=== PATIENT | male | born 1970 | race African-American/Black ===

== ENCOUNTER 2019-02-26 01:36 | Emergency (ER) | payer SELFPAY ==
[2019-02-26] MEDS ORDERED: NORMAL SALINE 1000 ML 1,000 ML IV ONE (01:58)
[2019-02-26 02:04] LABS: ABSOLUTE EOSINOPHILS # (AUTO) 0.1 10^3/uL (0.0-0.6); ABSOLUTE LYMPHOCYTES (AUTO) 2.3 10^3/uL (0.5-4.7); ABSOLUTE MONOCYTES (AUTO) 0.8 10^3/uL (0.1-1.4); ABSOLUTE NEUT (AUTO) 10.7 10^3/uL (1.7-8.2); BASOPHILS % (AUTO) 0.3 % (0-2); EOSINOPHILS % (AUTO) 0.4 % (0-6); HEMATOCRIT 38.6 % (37.9-51.0); HEMOGLOBIN 12.7 g/dL (13.5-17.0); LYMPHOCYTES % (AUTO) 16.7 % (13-45); MEAN CORPUSCULAR HEMOGLOBIN 29.3 pg (27.0-33.4); MEAN CORPUSCULAR VOLUME 89 fl (80-97); MONOCYTES % (AUTO) 5.6 % (3-13); PLATELET COUNT 289 10^3/uL (150-450); RED BLOOD COUNT 4.35 10^6/uL (4.35-5.55); RED CELL DISTRIBUTION WIDTH 13.8 % (11.5-14.0); TOTAL CELLS COUNTED % (AUTO) 100 %; WHITE BLOOD COUNT 13.9 10^3/uL (4.0-10.5)
--- NOTE | 2019-02-26 02:05 | ER Document Report ---
ED General - General Chief Complaint: Rectal Bleeding Stated Complaint: RECTAL BLEEDING Time Seen by Provider: 02/26/19 01:52 Notes: Patient is a pleasant 49-year-old male presents with complaint of heavy bleeding from the rectal region. Just started tonight. He is never had anything like this before. He denies any pain associated with it. No fevers. No vomiting. He does drink alcohol on a daily basis. Smokes cigarettes. No drugs. He does not take any medications. He denies any medical allergies. He denies history of previous colonoscopy or endoscopy. No other complaints at this time. He says that he will just have pure blood that comes from his rectum. Is not necessarily associated with stool. TRAVEL OUTSIDE OF THE [place] IN LAST 30 DAYS: No - Related Data Allergies/Adverse Reactions: No Known Allergies Allergy (Verified 02/26/19 01:39) Past Medical History - Social History Smoking Status: Current Every Day Smoker Frequency of alcohol use: Heavy Drug Abuse: None Family History: Reviewed & Not Pertinent Pulmonary Medical History: Denies: Hx Tuberculosis GI Medical History: Reports: Hx Gastroesophageal Reflux Disease - Immunizations Hx Diphtheria, Pertussis, Tetanus Vaccination: No Review of Systems - Review of Systems Notes: My Normal Review Basic REVIEW OF SYSTEMS: CONSTITUTIONAL : Denies fever, chills, or sweats. Denies recent illness. CARDIOVASCULAR: Denies chest pain. RESPIRATORY: Denies cough, cold, or chest congestion. Denies shortness of breath, difficulty breathing, or wheezing. GASTROINTESTINAL: Denies abdominal pain. Denies nausea, vomiting, or diarrhea. Denies constipation. Rectal bleeding. MUSCULOSKELETAL: Denies neck or back pain or joint pain or swelling. SKIN: Denies rash or skin lesions. HEMATOLOGIC : Denies easy bruising or bleeding. NEUROLOGICAL: Denies altered mental status or loss of consciousness. ALL OTHER SYSTEMS REVIEWED AND NEGATIVE. Physical Exam - Vital signs Vitals: Resp BP Pulse Ox 21 H 114/84 100 02/26/19 01:47 02/26/19 01:47 02/26/19 01:47 - Notes Notes: General Appearance: Well nourished, alert, cooperative, no acute distress, no obvious discomfort. Vitals: reviewed, See vital signs table. Eyes: PERRL, EOMI, Conjuctiva clear Mouth: No decreasd moisture Lungs: No wheezing, No rales, No rhonci, No accessory muscle use, good air exchange bilaterally. Heart: Normal rate, Regular rythm, No murmur, no rub Abdomen: Normal BS, soft, No rigidity, No abdominal tenderness, No guarding, no rebound, no abdominal masses, no organomegaly Rectal exam: Some dried blood around outside the rectum. No hemorrhoids. No fissures. Extremities: good pulses in all extremities, no swelling or tenderness in the extremities, no edema. Skin: warm, dry, appropriate color, no rash Neuro: speech clear, oriented x 3, normal affect, responds appropriately to ques tions. Course - Re-evaluation Re-evalutation: 02/26/19 04:25 Patient has not had any further rectal bleeding since arriving to the ER. Is been here for a few hours. Vital signs remained normal. CT scan shows diverticulosis without obvious active large hemorrhage. I talked the patient and his fiance at length. I informed him that he could have a diverticular bleed that was causing his symptoms. I told him this is most likely thing. I informed him that is also possible he could have a polyp or even colon cancer that could be leading to his bleeding. I recommend staying in the hospital for admission for 24 observation to make sure there is not further bleeding and help arrange for colonoscopy. I informed her it is extremely important as a colonoscopy to help rule out polyp or cancer. Patient shows understanding of this but says that he does not want to stay and prefers to go home. Patient's fili said that she will bring him back to ER immediately if he has any recurrent bleeding. Patient is awake alert and oriented. Answers all questions appropriately. He demonstrates capacity to make his own decisions and therefore cannot hold him against as well. I informed him that we want what is best form and strongly encouraged him return to ER anytime as we are happy to take care of him and help him. I will refer him to the GI specialist for reevaluation and for colonoscopy. Patient agrees with plan and will be discharged as he [facility]. Patient'ana penn had some concerns that he was a bit confused at first. Says when he first arrived he kept asking questions about things that occurred earlier. Patient seems to have some lapse in memory of when all his spleen was going on. Currently he does not show any signs of confusion as he is answering all questions appropriately and acting appropriately without any signs of confusion. Dictation of this chart was performed using voice recognition software; therefore, there may be some unintended grammatical errors. - Vital Signs Vital signs: Temp Pulse Resp BP Pulse Ox 98 F 16 114/84 100 02/26/19 02:15 02/26/19 03:00 02/26/19 01:47 02/26/19 02:30 - Laboratory Result Diagrams: 02/26/19 01:48 02/26/19 01:48 Laboratory results interpreted by me: 02/26/19 02/26/19 01:48 01:48 WBC 13.9 H Hgb 12.7 L Absolute Neutrophils 10.7 H Creatinine 1.84 H Est GFR ( Amer) 47 L Est GFR (Non-Af Amer) 39 L Glucose 114 H Discharge - Discharge Clinical Impression: Rectal bleeding, Diverticulosis Condition: Stable Disposition: HOME, SELF-CARE Additional Instructions: Your CT scan shows that you have diverticulosis. This is out pouching's of the bowel wall that occur as you get older. Sometimes this can lead to bleeding. This is the most likely the cause of the bleeding that you had tonight. Other causes of similar bleeding could be a polyp in your colon or even cancer. It is therefore extremely important that you have a colonoscopy performed to evaluate to make sure that you do not have any of these concerning findings. We do recommend that you stay in the hospital so we can watch you for the next 24 hours to make sure you do not have any recurrent bleeding. There is no way to determine whether or not you will have a bad outcome within the next 24 hours and this is why we prefer you to stay. We respect your decision to leave and understand that you do have prior priorities. Even though you are leaving we are not upset or mad. We just want what is best for you and therefore we encourage you to come back anytime if you have any recurrence of your symptoms. Please call the GI physician, Dr. Fenton, to make a close follow-up appointment to have a colonoscopy performed. Please continue to slowly cut back on your alcohol intake until you are no longer drinking alcohol. Please again have a very low threshold to return to the ER if you have any recurrent bleeding, dizziness, lightheadedness, or feel unwell in any way. Referrals: ANTONINO FENTON MD [ACTIVE STAFF] - Follow up in 3-5 days (call office [place] morning to make a close follow up appointment)
[2019-02-26 02:11] LABS: INTERNATIONAL RATION (INR) 0.97; PROTHROMBIN TIME 13.4 SEC (11.4-15.4)
[2019-02-26 02:29] LABS: ALANINE AMINOTRANSFERASE 27 U/L (21-72); ALBUMIN 3.8 g/dL (3.5-5.0); ALKALINE PHOSPHATASE 57 U/L (38-126); ANION GAP 14 (5-19); ASPARTATE AMINO TRANSFERASE 22 U/L (17-59); BILIRUBIN,DIRECT 0.2 mg/dL (0.0-0.4); BILIRUBIN,TOTAL 0.2 mg/dL (0.2-1.3); BLOOD UREA NITROGEN 17 mg/dL (7-20); CALCIUM 9.3 mg/dL (8.4-10.2); CARBON DIOXIDE 24 mmol/L (22-30); CHLORIDE 101 mmol/L (98-107); GLUCOSE 114 mg/dL (75-110); POTASSIUM 3.8 mmol/L (3.6-5.0); SODIUM 139.3 mmol/L (137-145); TOTAL PROTEIN 6.5 g/dL (6.3-8.2)
--- NOTE | 2019-02-26 03:44 | RADIOLOGY REPORT (SQ) ---
EXAM DESCRIPTION: CT ABDOMEN PELVIS WITHOUT THEN WITH IV CONTRAST COMPLETED DATE/TME: 02/26/2019 00:00 CLINICAL HISTORY: 49 years, Male, lower GI bleed COMPARISON: None TECHNIQUE: [id number] Images stored on PACS. All CT scanners at this facility use dose modulation, iterative reconstruction, and/or weight based dosing when appropriate to reduce radiation dose to as low as reasonably achievable (ALARA). [facility]: Dose Right [facility]: CareDose [facility]: Dose Right [facility]: Teradose 4D [facility]: [employer] LIMITATIONS: None. FINDINGS: Lung bases are unremarkable. Osseous structures are grossly intact. Precontrast images show no discrete urinary tract calculus. The liver, spleen, adrenal glands, pancreas, kidneys are unremarkable. Focal fatty change of the anterior liver. The gallbladder is unremarkable. No gross evidence for bowel obstruction. Abundant stool in the colon. Sigmoid diverticulosis without CT evidence for diverticulitis. No free air or free fluid. Normal appendix IMPRESSION: Sigmoid diverticulosis without CT evidence for diverticulitis. Focal fatty change of the liver TECHNICAL DOCUMENTATION: Quality ID # [id number]: Final reports with documentation of one or more dose reduction techniques (e.g., Automated exposure control, adjustment of the mA and/or kV according to patient size, use of iterative reconstruction technique) copyright 2010 [employer]- All Rights Reserved
[2019-02-26 04:54] VITALS: BP 99/80
== END 2019-02-26 04:39 | disposition home or self-care (01) ==
LOC: ER 01:36
DX: K57.91 Diverticulosis of intestine, part unspecified, without perforation or abscess with bleeding (principal); K62.5 Hemorrhage of anus and rectum; F17.200 Nicotine dependence, unspecified, uncomplicated
CPT/HCPCS: 99284; 96360; 86900; 86901; 36415; 86850; 85025; 85610; 85730; 80053; 74178; J7030

== ENCOUNTER 2019-05-24 11:38 | Emergency (ER) | payer SELFPAY ==
--- NOTE | 2019-05-24 12:21 | ER Document Report ---
ED Medical Screen (RME) - General Chief Complaint: Abscess Stated Complaint: POSSIBLE SPIDER BITE Time Seen by Provider: 05/24/19 12:11 Notes: 49-year-old male presents to the emergency department with concern for a brown recluse bite approximately 1 week ago to the posterolateral aspect of the right forearm. He is sure that it is a brown recluse because after the fact he saw a 1 in the area where he got bit. Patient states that he has significant pain in the area with joint pain at the elbow. No clear evidence of central necrosis, patient denies fevers, denies general myalgias, denies nausea vomiting. EXAM: Area over the right posterior lateral forearm with swelling consistent with an abscess, area is indurated, could not palpate an area of fluctuance, central area that is scabbed over TRAVEL OUTSIDE OF THE [place] IN LAST 30 DAYS: No - Related Data Allergies/Adverse Reactions: No Known Allergies Allergy (Verified 05/24/19 11:40) Past Medical History Pulmonary Medical History: Denies: Hx Tuberculosis Renal/ Medical History: Denies: Hx Peritoneal Dialysis GI Medical History: Reports: Hx Gastroesophageal Reflux Disease - Immunizations Hx Diphtheria, Pertussis, Tetanus Vaccination: No Physical Exam - Vital signs Vitals: Temp Pulse Resp BP Pulse Ox 98.7 F 81 20 124/73 100 05/24/19 11:48 05/24/19 11:48 05/24/19 11:48 05/24/19 11:48 05/24/19 11:48 Course - Vital Signs Vital signs: Temp Pulse Resp BP Pulse Ox 98.7 F 81 20 124/73 100 05/24/19 11:48 05/24/19 11:48 05/24/19 11:48 05/24/19 11:48 05/24/19 11:48
[2019-05-24] MEDS ORDERED: LIDOCAINE 1% INJ-PF (10 MG/ML) 30 ML SDV INJ ONE (13:28)
--- NOTE | 2019-05-24 14:35 | ER Document Report ---
Entered by SHYLA OLMEDO SCRIBE 05/24/19 1336 Acting as scribe for:EVIN HELLER MD ED Skin Rash/Insect Bite/Abscs - General Chief Complaint: Abscess Stated Complaint: POSSIBLE SPIDER BITE Time Seen by Provider: 05/24/19 12:11 Mode of Arrival: Ambulatory Information source: Patient Notes: 49-year-old male who presents to the emergency department today with complaints of an abscess to his right arm. Patient states he has had this area on his arm for several days, stating that he has been squeezing on it and has gotten some purulent drainage from it. 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 TRAVEL OUTSIDE OF THE [place] IN LAST 30 DAYS: No - Related Data Allergies/Adverse Reactions: No Known Allergies Allergy (Verified 05/24/19 11:40) Past Medical History - General Information source: Patient - Social History Smoking Status: Current Every Day Smoker Cigarette use (# per day): Yes Chew tobacco use (# tins/day): No Frequency of alcohol use: Social Drug Abuse: None Lives with: Family Family History: Reviewed & Not Pertinent Patient has suicidal ideation: No Patient has homicidal ideation: No GI Medical History: Reports: Hx Gastroesophageal Reflux Disease - Immunizations Hx Diphtheria, Pertussis, Tetanus Vaccination: No Review of Systems - Review of Systems Constitutional: No symptoms reported EENT: No symptoms reported Cardiovascular: No symptoms reported Respiratory: No symptoms reported Gastrointestinal: No symptoms reported Genitourinary: No symptoms reported Male Genitourinary: No symptoms reported Musculoskeletal: No symptoms reported Skin: See HPI, Lesions - right arm Hematologic/Lymphatic: No symptoms reported Neurological/Psychological: No symptoms reported -: Yes All other systems reviewed and negative Physical Exam - Vital signs Vitals: Temp Pulse Resp BP Pulse Ox 98.7 F 81 20 124/73 100 05/24/19 11:48 05/24/19 11:48 05/24/19 11:48 05/24/19 11:48 05/24/19 11:48 - Notes Notes: Physical Exam: General: Alert, appears well. HEENT: Normocephalic. Atraumatic. PERRLA. Extraocular movements intact. Oroph arynx clear. Neck: Supple. Respiratory: No respiratory distress. Abdominal: Normal Inspection. No distension. Extremities: Moves all four extremities. Neurological: Normal cognition. AAOx4. Normal speech. Psychological: Normal affect. Normal Mood. Skin: Area just distal to right elbow which is indurated, swollen, erythematous, and tender with palpation. There is a scab in the center consistent with recent drainage. Course - Re-evaluation Re-evalutation: 05/24/19 14:40 PROCEDURE: The right proximal dorsal forearm skin was prepped with Shur-Clens. The skin and underlying subcutaneous tissue was anesthetized with 8 mL's of 1% lidocaine local. The scabbed area was incised with a #11 blade. A superficial cavity was entered with no purulence noted. Squeezing the deeper indurated tissues caused some purulence to appear, so the wound was probed with mosquito until an area popped through into a deeper cavity that was filled with pus. Mosquito clamp was opened and rotated enlarging the hole into the deeper cavity. Wound was irrigated with 10 mL's of normal saline. The deeper cavity was packed with quarter inch iodoform gauze, and the gauze was then packed into the more superficial cavity and cut off at the skin. Sterile dressing was applied. 05/24/19 14:46 Patient's discharge instructions do not include taking NSAIDs, as when he was seen previously he showed some renal insufficiency. - Vital Signs Vital signs: Temp Pulse Resp BP Pulse Ox 98.7 F 81 20 124/73 100 05/24/19 11:48 05/24/19 11:48 05/24/19 11:48 05/24/19 11:48 05/24/19 11:48 Discharge - Discharge Clinical Impression: Abscess of right forearm Condition: Stable Disposition: HOME, SELF-CARE Additional Instructions: Abscess You have an abscess (boil). This a pus-forming infection, usually due to staph. Some boils may be left to drain on their own, but most require lancing. From the time the tender lump first appears, it may be three or four days before the abscess is ready to tangela. Local heat and rest help at this stage of treatment. An antibiotic may prevent spread of the infection. Once the abscess is opened, packing may be placed into it. This is done so pus is not sealed inside by premature closure of the cavity. The packing will be removed at your follow-up visit or you may be advised to remove it yourself at home. Sometimes this packing must be replaced a few times during healing. The wound will heal with surprisingly little scar. Depending on the size and location of an abscess, healing can take one to four weeks. You may shower and wash the area around the incision site two or three times a day. Antibiotics may be prescribed, but are usually not necessary after an abscess has been drained. If you develop fever, chilling, worsening pain, or increasing swelling in the area, call the doctor or return immediately. Take medications as prescribed. Elevate your right arm as much possible. Limit using your right arm. Remove the gauze packing in 2 days and immediately begin probing the wound with Q-tips dipped in peroxide. Be sure to try to get down into the deeper cavity with the Q-tip. Probe the wound several times daily in an attempt to keep it open and allow it to heal from the inside out. Follow-up with the primary care provider or local general surgeon if not improving. RETURN TO THE EMERGENCY ROOM IF ANY NEW OR WORSENING SYMPTOMS. Prescriptions: Cephalexin Monohydrate [Keflex 500 mg Capsule] 500 mg PO QID #28 capsule Oxycodone HCl/Acetaminophen [Percocet 5-325 mg Tablet] 1 tab PO ASDIR PRN #12 tablet PRN Reason: Sulfamethoxazole/Trimethoprim [Bactrim Ds Tablet] 2 tab PO BID #28 tablet Scribe Attestation: 05/24/19 14:44 I personally performed the services described in the documentation, reviewed and edited the documentation which was dictated to the scribe in my presence, and it accurately records my words and actions. I personally performed the services described in the documentation, reviewed and edited the documentation which was dictated to the scribe in my presence, and it accurately records my words and actions.
[2019-05-24] MEDS ORDERED: SULFAMETHOXAZOLE/TRIMETHOPRIM 800-160 MG TABLET PO ONE (14:37)
[2019-05-24] MEDS ORDERED: CEPHALEXIN 500 MG CAPSULE PO ONE (14:37)
[2019-05-24 15:01] VITALS: BP 124/71
== END 2019-05-24 15:00 | disposition home or self-care (01) ==
LOC: ER 11:38
DX: L02.413 Cutaneous abscess of right upper limb (principal); F17.210 Nicotine dependence, cigarettes, uncomplicated
CPT/HCPCS: 99283; 87070; 87077; 87186; 10060; A6266; 87205